=== PATIENT | female | born 1995 | race Caucasian/White ===

== ENCOUNTER 2018-02-18 18:46 | Observation (INO) | payer OTHER ==
--- NOTE | 2018-02-18 19:00 | EDPHY ---
H & P Stated Complaint: R lower quad pain x 2 hours Time Seen by Provider: 02/18/18 19:00 HPI/ROS: CHIEF COMPLAINT: Abdominal pain HISTORY OF PRESENT ILLNESS: The patient presents the ED with complaints of acute severe right lower quadrant pain that began 2 hr prior to arrival. The patient reports associated symptoms of nausea and retching. She reportedly had a bowel movement and passed small amount of mucoid stool. The patient has a prior history of ovarian cyst. She denies prior history of abdominal surgery. She currently rates her pain is 10/10. She denies fever, flank pain or antecedent dysuria. She denies vaginal bleeding or discharge. She reports her last menstrual period was 3 weeks ago and normally timed. REVIEW OF SYSTEMS: A comprehensive 10 point review of systems is otherwise negative aside from elements mentioned in the history of present illness. Source: Patient - Personal History LMP (Females 10-55): 22-28 Days Ago - Medical/Surgical History Hx Asthma: No Hx Chronic Respiratory Disease: No Hx Diabetes: No Hx Cardiac Disease: No Hx Renal Disease: No Hx Cirrhosis: No Hx Alcoholism: No Hx HIV/AIDS: No Hx Splenectomy or Spleen Trauma: No Other PMH: ovarian cyst - Social History Smoking Status: Never smoked - Physical Exam Exam: General Appearance: Alert, tearful, appears uncomfortable Eyes: Pupils equal and round no pallor or injection ENT, Mouth: Mucous membranes moist Respiratory: There are no retractions, lungs are clear to auscultation Cardiovascular: Regular rate and rhythm Gastrointestinal: Tenderness to palpation in the right lower quadrant with associated rebound Neurological: A&O, normal motor function, normal sensory exam, normal cranial nerves Skin: Warm and dry, no rashes Musculoskeletal: Neck is supple nontender Extremities: symmetrical, full range of motion Psychiatric: Patient is oriented X 3, there is no agitation Constitutional: Initial Vital Signs Temperature (C) 37.0 C 02/18/18 18:51 Heart Rate 90 02/18/18 18:51 Respiratory Rate 16 02/18/18 18:51 Blood Pressure 118/80 02/18/18 18:51 O2 Sat (%) 99 02/18/18 18:51 O2 Delivery Mode Room Air Allergies/Adverse Reactions: No Known Allergies Allergy (Unverified 02/18/18 18:49) Home Medications: Medication Instructions Recorded Amphet Asp and D/Amphet [Adderall 10 mg PO DAILY PRN 02/18/18 10 MG (*)] Control 1 tab PO DAILY 02/18/18 Lisdexamfetamine Dimesylate 60 mg PO DAILY 02/18/18 [Vyvanse] Melatonin [Melatonin 3 MG (*)] 3 mg PO HS PRN 02/18/18 Omeprazole 40 mg PO DAILY PRN 02/18/18 Medical Decision Making - Diagnostics Imaging Results: Imaging Impressions Abdomen Ultrasound 02/18/18 19:13 Impression: Acute appendicitis. Findings and recommendations discussed with Slick Mccormick M.D., at 934 hours, on February 18, 2018. Final report concurs with initial preliminary interpretation. Pelvic/Renal Ultrasound 02/18/18 19:13 Impression: Normal ultrasound pelvis. Findings and recommendations discussed with Slick Mccormick at 9:35 PM hour, 02/18/2018. Final report concurs with initial preliminary interpretation. ED Course/Re-evaluation: The patient presents to the ED with a 1 day history of right lower quadrant pain. The patient does have a prior history of ovarian cyst but denies this type pain in the past. She does report nausea, pain which is worsened with movement. The patient was noted to have a significant leukocytosis. Urinalysis demonstrates no evidence of an infection Pelvic ultrasound demonstrates no evidence of an ovarian torsion, cyst or abnormality. Abdominal ultrasound demonstrates evidence of acute appendicitis. I re-evaluated the patient at 9:40 p.m. and she continues to have right lower quadrant tenderness with rebound. The patient received IV antibiotics including ceftriaxone and Flagyl. Consultation was made with Dr. Davis from the General surgery service. The patient will be admitted and undergo laparoscopic appendectomy this evening. Differential Diagnosis: Differential diagnosis considered includes appendicitis, ovarian torsion, ovarian cyst, pyelonephritis, mesenteric adenitis - Data Points Laboratory Results: Laboratory Results 02/18/18 19:40 02/18/18 19:40 02/18/18 02/18/18 02/18/18 19:40 19:40 19:40 WBC 20.22 10^3/uL H 10^3/uL (3.80-9.50) RBC 5.06 10^6/uL 10^6/uL (4.18-5.33) Hgb 15.1 g/dL g/dL (12.6-16.3) Hct 44.0 % % (38.0-47.0) MCV 87.0 fL fL (81.5-99.8) MCH 29.8 pg pg (27.9-34.1) MCHC 34.3 g/dL g/dL (32.4-36.7) RDW 13.2 % % (11.5-15.2) Plt Count 193 10^3/uL 10^3/uL (150-400) MPV 13.3 fL H fL (8.7-11.7) Neut % (Auto) 86.0 % H % (39.3-74.2) Lymph % (Auto) 7.5 % L % (15.0-45.0) [place] % (Auto) 6.1 % % (4.5-13.0) Eos % (Auto) 0.0 % L % (0.6-7.6) Baso % (Auto) 0.1 % L % (0.3-1.7) Nucleat RBC Rel Count 0.0 % % (0.0-0.2) Absolute Neuts (auto) 17.36 10^3/uL H 10^3/uL (1.70-6.50) Absolute Lymphs (auto) 1.51 10^3/uL 10^3/uL (1.00-3.00) Absolute Monos (auto) 1.24 10^3/uL H 10^3/uL (0.30-0.80) Absolute Eos (auto) 0.01 10^3/uL L 10^3/uL (0.03-0.40) Absolute Basos (auto) 0.03 10^3/uL 10^3/uL (0.02-0.10) Absolute Nucleated RBC 0.00 10^3/uL 10^3/uL (0-0.01) Immature Gran % 0.3 % % (0.0-1.1) Immature Gran # 0.07 10^3/uL 10^3/uL (0.00-0.10) Sodium 137 mEq/L mEq/L (135-145) Potassium 4.0 mEq/L mEq/L (3.3-5.0) Chloride 102 mEq/L mEq/L (97-110) Carbon Dioxide 22 mEq/l mEq/l (22-31) Anion Gap 13 mEq/L mEq/L (8-16) BUN 11 mg/dL mg/dL (7-23) Creatinine 0.8 mg/dL mg/dL (0.6-1.0) Estimated GFR > 60 Glucose 108 mg/dL H mg/dL (70-100) Calcium 9.8 mg/dL mg/dL (8.5-10.4) Beta HCG, Qual NEGATIVE Urine Color Urine Appearance Urine pH Ur Specific [place] Urine Protein Urine Ketones Urine Blood Urine Nitrate Urine Bilirubin Urine Urobilinogen Ur Leukocyte Esterase Urine Glucose 02/18/18 18:55 WBC RBC Hgb Hct MCV MCH MCHC RDW Plt Count MPV Neut % (Auto) Lymph % (Auto) [place] % (Auto) Eos % (Auto) Baso % (Auto) Nucleat RBC Rel Count Absolute Neuts (auto) Absolute Lymphs (auto) Absolute Monos (auto) Absolute Eos (auto) Absolute Basos (auto) Absolute Nucleated RBC Immature Gran % Immature Gran # Sodium Potassium Chloride Carbon Dioxide Anion Gap BUN Creatinine Estimated GFR Glucose Calcium Beta HCG, Qual Urine Color YELLOW Urine Appearance HAZY Urine pH 5.0 (5.0-7.5) Ur Specific [place] 1.023 (1.002-1.030) Urine Protein NEGATIVE (NEGATIVE) Urine Ketones 1+ H (NEGATIVE) Urine Blood NEGATIVE (NEGATIVE) Urine Nitrate NEGATIVE (NEGATIVE) Urine Bilirubin NEGATIVE (NEGATIVE) Urine Urobilinogen NEGATIVE EU EU (0.2-1.0) Ur Leukocyte Esterase NEGATIVE (NEGATIVE) Urine Glucose NEGATIVE (NEGATIVE) Medications Given: Ceftriaxone Sodium/Dextrose (Rocephin 1 Gm (Premix)) 50 mls @ 100 mls/hr IV EDNOW ONE PRN Reason: Protocol Stop: 02/18/18 22:06 Last Admin: 02/18/18 21:39 Dose: 50 mls Discontinued Medications Sodium Chloride (Ns) 1,000 mls @ 0 mls/hr IV EDNOW ONE; Wide Open PRN Reason: Protocol Stop: 02/18/18 19:13 Last Admin: 02/18/18 19:33 Dose: 1,000 mls Ketorolac Tromethamine (Toradol) 15 mg IVP EDNOW ONE Stop: 02/18/18 19:45 Last Admin: 02/18/18 19:45 Dose: 15 mg Departure - Departure Disposition: [facility] Acute Clinical Impression: Acute appendicitis Condition: Good
[2018-02-18] MEDS ORDERED: NS 1,000 ML IV ONE (19:12)
[2018-02-18] MEDS ORDERED: KETOROLAC 15 MG/1 ML SDV ONE (19:43)
[2018-02-18] MEDS ORDERED: KETOROLAC 15 MG/1 ML SDV IVP ONE (19:44)
[2018-02-18 20:15] LABS: PLATELET COUNT 193 10^3/uL (150-400)
[2018-02-18] MEDS ORDERED: HEPARIN 5,000 UNIT/0.5 ML INJ ONE (22:18)
[2018-02-18] MEDS ORDERED: ceFAZolin 1 GM/5 ML SYR ONE (22:19)
--- NOTE | 2018-02-18 22:59 | PDANEPAE ---
ANE Past Medical History - Pulmonary History Hx Oxygen in Use at Home: No Hx Sleep Apnea: No - Endocrine History Hx Diabetes: No ANE Review of Systems Review of Systems: ANE Patient History - Allergies Allergies/Adverse Reactions: No Known Allergies Allergy (Unverified 02/18/18 18:49) - Home Medications Home Medications: Amphet Asp and D/Amphet [Adderall 10 MG (*)] 10 mg PO DAILY PRN 02/18/18 [Last Taken Unknown] Control 1 tab PO DAILY 02/18/18 [Last Taken 02/18/18] Lisdexamfetamine Dimesylate [Vyvanse] 60 mg PO DAILY 02/18/18 [Last Taken ] Melatonin [Melatonin 3 MG (*)] 3 mg PO HS PRN 02/18/18 [Last Taken Unknown] Omeprazole 40 mg PO DAILY PRN 02/18/18 [Last Taken 02/18/18] - NPO status NPO Since - Liquids (Date): 02/18/18 NPO Since - Liquids (Time): 17:00 NPO Since - Solids (Date): 02/18/18 NPO Since - Solids (Time): 15:30 - Smoking Hx Smoking Status: Never smoked ANE Labs/Vital Signs - Labs Result Diagrams: 02/18/18 19:40 02/18/18 19:40 - Vital Signs Blood Pressure: 110/75 Heart Rate: 85 Respiratory Rate: 16 O2 Sat (%): 94 Height: 162.56 cm Weight: 56.699 kg ANE Physical Exam - Airway Mallampati Score: Class 1 - ASA Status ASA Status: II, E ANE Anesthesia Plan Anesthesia Plan: general endotracheal anesthesia
[2018-02-18] MEDS ORDERED: fentaNYL 100 MCG/2 ML INJ ONE (23:01)
[2018-02-18] MEDS ORDERED: MIDAZOLAM 2 MG/2 ML VIAL ONE (23:01)
[2018-02-18] MEDS ORDERED: PROPOFOL 200 MG/20 ML VIAL ONE (23:02)
[2018-02-18] MEDS ORDERED: ONDANSETRON 4 MG/2 ML VIAL ONE (23:03)
[2018-02-18] MEDS ORDERED: METOCLOPRAMIDE 10 MG/2 ML VIAL ONE (23:03)
[2018-02-18] MEDS ORDERED: ROCURONIUM 50 MG/5 ML VIAL ONE (23:03)
[2018-02-18] MEDS ORDERED: SUGAMMADEX SODIUM 200 MG/2 ML VIAL IVP ONE (23:52)
--- NOTE | 2018-02-18 23:57 | GHP ---
DATE OF ADMISSION: 02/18/2018 ADMITTING DIAGNOSIS: Acute appendicitis. 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 As the day progressed, her appetite diminished. She had minimal lunch and her pain increased. At approximately 4 p.m., the pain focused in the right lower quadrant. She did have 3-4 stools earlier this morning, the first normal and then becoming more mucoid. Moving her bowels did not change her discomfort. She has not had a recent upper respiratory tract infection or diarrhea. There is no history of inflammatory bowel disease. She has had prior surgeries manifest at age 8 for bilateral ureteral reflux. She has had antibiotics for bronchitis and vaginosis in the last 6 months. There is no history of travel outside the [place]. She is seen in the ER. Ultrasound showed no fluid in the pelvis. It did show a tubular noncompressible 1.3 cm structure. Her white count was 20,000 with 86% neutrophils. A presumptive diagnosis of appendicitis was made and I was asked to come see the patient. SOCIAL HISTORY: She does not smoke. She drinks 1-2 nights per week and drinks just 2 drinks on those nights. ALLERGIES: There are no known drug allergies. MEDICATIONS: She does take an oral contraceptive. She takes Vyvanse 60mg for ADHD every morning and Adderall 10 mg every day or every other day to help with studying. PAST SURGICAL HISTORY: She has had wisdom tooth extraction complicated by infection. She has had surgery for the ureteral reflux as mentioned above. PAST MEDICAL HISTORY: There is no history of rheumatic fever, tuberculosis, hepatitis, or transfusions. REVIEW OF SYSTEMS: She has had 1 concussion. She wears contacts. She has a questionable gluten sensitivity. She has a permanent retainer. Review of systems otherwise quite negative. There are no limits on her activities. No history of steroid use in the last 6 months. FAMILY HISTORY: Note is made that her mother does have Jonny's thyroiditis. PHYSICAL EXAMINATION: GENERAL: She is awake, alert, and in no acute distress. She is seen lying comfortably on the ER gurney. HEENT: Her skull is normocephalic and atraumatic. There are no focal lateralizing neurologic findings. She is pleasant, awake, and conversant. NECK: Nontender. There is no thyroid enlargement. No carotid bruits. BACK: Unremarkable. LUNGS: Clear to auscultation. There is no cervical, supraclavicular, axillary , or inguinal lymphadenopathy. She does have a persistent blair. She said it does fade in the winter. CARDIAC: Shows S1, S2 to be normal. Normal split of S2, without murmurs, rubs , or gallops. ABDOMEN: Tender with cough in the right lower quadrant, just inferior to McBurney's point at a 7/10. Obturator sign is positive. Psoas sign is negative. Bowel sounds are present but minimal. Palpation left upper quadrant is 1 on a scale of 1-10, left mid abdomen is 1, left lower quadrant is 1, epigastrium is 1, periumbilical area is 1, suprapubic area is 2, right upper quadrant is 1, right mid abdomen is 8, right lower quadrant is 7. There is no tenderness over the iliac crest. LABORATORY DATA: Her beta hCG is negative. Her BUN is 11, creatinine is 0.8. Her specific gravity is 1.023. Platelet count is 143, hematocrit is 44. She has received Rocephin and Flagyl. PLAN: Laparoscopic exploration. The patient and family understand the planned procedure. /[id number]/MODL MTDD
[2018-02-19] MEDS ORDERED: fentaNYL 100 MCG/2 ML INJ ONE ×2 (00:08→00:31)
[2018-02-19] MEDS ORDERED: LR 500 ML IV PRN (00:27)
[2018-02-19] MEDS ORDERED: NALOXONE HCL 0.4 MG/ML INJ IVP PRN (00:27)
[2018-02-19] MEDS ORDERED: PROMETHAZINE HCL 25 MG/ML INJ IVP PRN (00:27)
--- NOTE | 2018-02-19 00:28 | POSTANESTH ---
Post Anesthetic Evaluation Cardiovascular Status: Normal, Stable Respiratory Status: Normal, Stable Level of Consciousness/Mental Status: Can Participate in Eval Pain Control: Adequate, Prn Tx Ordered Nausea/Vomiting Control: Adequate, Prn Tx Ordered Complications Possibly Related to Anesthesia: None Noted
[2018-02-19] MEDS ORDERED: ONDANSETRON 4 MG/2 ML VIAL IVP PRN (00:31)
[2018-02-19] MEDS: fentaNYL 100 MCG/2 ML INJ IVP PRN ×3 (00:33→00:44)
[2018-02-19] MEDS ORDERED: MELATONIN 3 MG TAB PO PRN (00:36)
--- NOTE | 2018-02-19 00:39 | POSTOPPROG ---
Post Op Note Date of Operation: 02/19/18 Surgeon: Porter Davis Anesthesia: GET(General Endotracheal) Pre-op Diagnosis: acute appendicitis Post-op Diagnosis: acute appendicitis, small right inguinal hernia Indication: acute appendicitis Procedure: laparoscopic appendectomy Findings: acute appendicitis, small right inguinal hernia Inf/Abcess present in the surg proc area at time of surgery?: No EBL: Minimal Total fluids administered: 1600cc ( including ER ) Complications: none Specimen(s): appendix
[2018-02-19] MEDS ORDERED: KETOROLAC 15 MG/1 ML SDV ONE (00:59)
[2018-02-19] MEDS ORDERED: LR 1,000 ML IV SCH (01:00)
[2018-02-19] MEDS: ACETAMINOPHEN 500 MG TAB PO SCH ×3 (01:23→16:50)
[2018-02-19] MEDS: KETOROLAC 15 MG/1 ML SDV IVP SCH ×5 (01:24→23:23)
[2018-02-19] MEDS: HYDROmorphONE/DILAUDID 1 MG/ML INJ IVP PRN ×4 (01:57→23:28)
--- NOTE | 2018-02-19 08:39 | GOP ---
DATE OF OPERATION: 02/19/2018 SURGEON: Porter Davis MD PREOPERATIVE DIAGNOSIS: Acute appendicitis. POSTOPERATIVE DIAGNOSIS: Acute unruptured appendicitis with small right inguinal hernia. PROCEDURE PERFORMED: Laparoscopic appendectomy. FINDINGS: Acute unruptured appendicitis with small right inguinal hernia. ESTIMATED BLOOD LOSS: Scant. INDICATIONS: Acute appendicitis. DESCRIPTION OF PROCEDURE: The patient is placed on the operating table in supine position. After induction of adequate general endotracheal anesthesia, the abdomen was carefully clipped, prepped, and draped. A surgical time-out was carried out and agreed to by all members of the operative team. The curvilinear incision was planned in the umbilicus. The skin was sharply incised. It was deepened with Bovie electrocautery and a spreading technique to expose the anterior rectus sheath which was elevated between Allis clamps. It was divided in the midline. A pursestring of #0 PDS was placed. The peritoneum was entered. An 11-12 mm disposable Nazario trocar was positioned. Intra-abdominal insufflation was carried out to 15 mmHg. In spite of preoperative concerns, there were no intraabdominal adhesions. A 5 mm left lower quadrant oblique incision was made for placement of a 5 mm port. The suprapubic incision was made just above the prior skin incision to avoid injury to the adherent bladder. A second 5 mm port was placed. Immediately, a small 3 mm right inguinal hernia was identified. The appendix was tensely distended and was easily visualized in the right lower quadrant. There was no purulent fluid in the pelvis. The appendix appeared to be unruptured. The mesoappendix was elevated with an Endo Allis clamp and transected with the Harmonic scalpel. A 35 mm powered Endo-LEVY stapler was placed across the appendiceal base to include a small cuff of cecum. It was fired. The specimen was removed in an EndoCatch pouch. On examining the site, the inferior lateral end of the staple line has a small bleeding point. This was carefully elevated with a mixtur clamp, and an Endoloop was placed around it , which controlled the bleeding completely. Irrigation was carried out with heparin and Ancef-containing irrigant. Photographic documentation of the appendix was carried out, and also photographic documentation on both the right and left ovaries and uterus was carried out. Photographic documentation of the liver and gallbladder was carried out. The small bowel was run for a distance of approximately 3 feet. There was occasional mesenteric adenitis, but there was no Meckel diverticulitis. Further irrigation with heparin and Ancef-containing irrigant was carried out. The ports were removed under direct vision. The umbilical fascial defect was elevated with 2 Allis clamps and inverted simple suture of #0 PDS was placed at its midpoint. This was tied. The pursestring was now tied. This resulted in excellent fascial closure. There was no evidence of bleeding in the subcutaneous space. All skin incisions were closed with inverted simple sutures of #4-0 Vicryl. Mastisol and Steri-Strips were placed. Band-Aids were positioned. FLUIDS ADMINISTERED: Approximately 600 cc. DISPOSITION: Patient tolerated the procedure well and was transferred to recovery in stable and satisfactory condition. /[id number]/MODL MTDD
--- NOTE | 2018-02-19 09:45 | ASMTCMCOM ---
CM Note CM Note Notes: Reviewed chart, pt admitted for appendicitis. She is a student at [employer] she will dc home independent when medically stable, CM available for any changes. DC Plan: Independent Date Signed: 02/19/2018 09:44 AM Electronically Signed By:Connie Pretty RN
[2018-02-19] MEDS: Lisdexamfetamine Dimesylate [Vyvanse] 60 MG PO SCH (11:38)
--- NOTE | 2018-02-19 18:06 | SOAPPROG ---
SOAP Progress Note Assessment/Plan: PAD/POD#1 02/19/18 18:03 Assessment: Pain issues persist. Otherwise doing well, Taking liquids, passing flatus, afebrile, VSS Plan: Will continue supportive care and get F/u labs in AM Subjective: "I don't feel well." Objective: Vital Signs Temp Pulse Resp BP Pulse Ox 37.1 C 80 12 105/62 95 02/19/18 16:00 02/19/18 16:00 02/19/18 16:00 02/19/18 16:00 02/19/18 16:00 02/18/18 02/19/18 02/20/18 05:59 05:59 05:59 Intake Total 1865 700 Output Total 5 Balance 1860 700 - Time Spent With Patient Time Spent With Patient: 15 Physical Exam - Physical Exam General Appearance: WD/WN, alert, moderate distress Respiratory: chest non-tender, lungs clear, normal breath sounds Cardiac/Chest: regular rate, rhythm Abdomen: distended ((Minimally)), other (Hypoactive bowel sounds, Incisions clean and dry) Pelvic Exam: deferred Rectal: deferred Back: Normal inspection Skin: normal color, warm/dry Neuro/Psych: no motor/sensory deficits, alert, normal mood/affect, oriented x 3 ICD10 Worksheet Patient Problems: Problems Problem Status Onset Acute appendicitis Acute
[2018-02-20] MEDS: ACETAMINOPHEN 500 MG TAB PO SCH ×2 (00:25→08:42)
[2018-02-20] MEDS: HYDROmorphONE/DILAUDID 1 MG/ML INJ IVP PRN (04:43)
[2018-02-20 05:17] LABS: PLATELET COUNT 125 10^3/uL (150-400)
[2018-02-20] MEDS: KETOROLAC 15 MG/1 ML SDV IVP SCH ×2 (05:32→11:44)
[2018-02-20] MEDS: Lisdexamfetamine Dimesylate [Vyvanse] 60 MG PO SCH (10:45)
--- NOTE | 2018-02-20 10:50 | SOAPPROG ---
SOAP Progress Note Assessment/Plan: PAD/POD#1 02/19/18 18:03 Assessment: Pain issues persist. Otherwise doing well, Taking liquids, passing flatus, afebrile, VSS Plan: Will continue supportive care and get F/u labs in AM PAD/POD#2 02/20/18 10:48 Assessment: Pain now better controlled. VSS. CBC good Doing well Plan: Discharge Subjective: I feel better Objective: Vital Signs Temp Pulse Resp BP Pulse Ox 36.7 C 75 16 105/55 L 95 02/20/18 07:17 02/20/18 07:17 02/20/18 07:17 02/20/18 07:17 02/20/18 07:17 Laboratory Results 02/20/18 04:40 02/20/18 04:40 02/19/18 02/20/18 02/21/18 05:59 05:59 05:59 Intake Total 1865 1050 Output Total 5 Balance 1860 1050 - Time Spent With Patient Time Spent With Patient: 15 Physical Exam - Physical Exam General Appearance: WD/WN, alert, mild distress Respiratory: chest non-tender, lungs clear, normal breath sounds Cardiac/Chest: regular rate, rhythm Abdomen: normal bowel sounds, non-tender, soft, distended (slightly) Pelvic Exam: deferred Rectal: deferred Back: Normal inspection Skin: normal color, warm/dry Extremities: normal range of motion, non-tender, other (walking in hallway) Neuro/Psych: no motor/sensory deficits, alert, normal mood/affect, oriented x 3 ICD10 Worksheet Patient Problems: Problems Problem Status Onset Acute appendicitis Acute
[2018-02-20 11:39] VITALS: BP 103/66
--- NOTE | 2018-02-20 16:34 | GDS ---
SURGEON: Porter Davis MD, FACS. PROCEDURE PERFORMED: Laparoscopic appendectomy. FINDINGS: 1. Unruptured appendix. 2. Very tiny right indirect inguinal hernia. CONDITION AT DISCHARGE: Improved. DISPOSITION: Home. DIET: Unrestricted, although I have recommended she avoid constipating foods such as bananas, rice, applesauce, and cheese. There is no restriction on the texture of her diet. PAIN CONTROL: She will use Tylenol 1000 mg every 8 hours scheduled. She will use Toradol 10 mg every 6 hours scheduled, and she will use Dilaudid 2-4 mg every 4 hours as needed for breakthrough. She will continue her oral contraceptives. She will use an alternate method of contraception for the next month and a half. ACTIVITY: She is to limit her activity to lifting less than 10 pounds for 3 weeks. She is to shower only to keep her Steri-Strips in place. In addition, she will take a multivitamin with 100% of the RDAs of zinc, copper, and C on a daily basis for 3 weeks. She will watch for signs of infection for the next 2 weeks. These will include a superficial infection which would be manifested by redness, warmth, swelling, and tenderness. Deep infection is manifested by abdominal pain, decreased appetite, fevers, chills and general malaise. She will follow up with Dr. Jose Dickson's office in 2 weeks. She has been given a prescription for return to school for next week. I have asked for consideration given her recent surgery. /[id number]/MODL MTDD
== END 2018-02-20 12:39 | disposition home or self-care (01) ==
LOC: F3E 02-19 01:16
PROVIDERS: ADMIT Surgery; ATTEND Surgery
PROC: 0DTJ4ZZ Resection of Appendix, Percutaneous Endoscopic Approach (ICD-10-PCS; principal; 2018-02-18 22:45)
DX: K35.80 Unspecified acute appendicitis (principal); K40.90 Unilateral inguinal hernia, without obstruction or gangrene, not specified as recurrent
CPT/HCPCS: 44970; 76705; 76856; G0378; 96374; J0696; J1170; J1644; J1885; J2250; J2405; J2704; J2765; J3010